=== PATIENT | male | born 1970 | race Caucasian/White ===

== ENCOUNTER 2016-04-30 09:24 | Inpatient (IN) | payer SELFPAY ==
--- NOTE | ~2016-04-30 | HP ---
History And Physical [facility] [address] [place]. [address] NAME: ABRAHAM BEASLEY : [birth year] STATUS : ADM IN PAT#: [id number] AGE: 45 ADM/REG DATE : 04/30/16 MR#: [id number] REPORT SERV DATE: 04/30/16 DICTATED BY: DOMINIC MORRISON DATE: 04/30/16 REPORT STATUS : Draft TRANSCRIBED BY: MODL DATE: 04/30/16 DATE OF ADMISSION: 04/30/2016 CHIEF COMPLAINT: Chest pain. HISTORY OF PRESENT ILLNESS: The patient is a 45-year-old male with known coronary artery disease with previous anterior wall myocardial infarction in 07/2012 with drug-eluting stents to the LAD at that time. The patient awoke approximately 0400 hours on the day of admission with complaints of left elbow pain with mild chest discomfort. This is identical to his previous myocardial infarction pain. He ultimately was seen in the emergency department at [facility] in [place], [place]. His initial EKG was relatively unremarkable with the exception of evidence of an old anterior wall myocardial infarction. He continued to have chest pain despite medical management. Subsequent EKG suggested subtle ST elevation in the anterior leads. Initial troponin returned at 0.41, which is mildly elevated by their standard. The Code-STEMI protocol was activated. The patient was transferred emergently to the main campus [facility] in [place], [place]. He was received emergently in the catheterization laboratory. By time of arrival in catheterization laboratory, the patient was pain free. The patient reports maximum intensity of this discomfort an 8/10 to 9/10. He reports mild dyspnea in association with the chest pain. PAST MEDICAL HISTORY: 1. CAD. a. Status post anterior wall myocardial infarction 07/20/2012 with placement of 2 overlapping drug-eluting stents in the LAD (2.75 x 38 mm Xience and 3.5 x 15 mm Xience). 2. Hypertension. 3. Hyperlipidemia. 4. Tobacco abuse. FAMILY HISTORY: Mother with myocardial infarction at age 52. Recently in her late 60s. SOCIAL HISTORY: The patient smokes approximately a pack of cigarettes per day. He denies tobacco use for the last one month. He reports social alcohol use. He denies illicit drug use. ALLERGIES: NO KNOWN DRUG ALLERGIES. REVIEW OF SYSTEMS: Negative for all organ systems except per the history of present illness. PHYSICAL EXAMINATION: VITAL SIGNS: Blood pressure 108/52, pulse 88, respirations 16 and unlabored, saturating 100% on two liters nasal cannula. GENERAL: A middle-aged male, in no acute distress. History And Physical [address] [address] NAME: ABRAHAM BEASLEY : [birth year] STATUS : ADM IN [facility]#: [id number] AGE: 45 ADM/REG DATE : 04/30/16 MR#: [id number] REPORT SERV DATE: 04/30/16 DICTATED BY: DOMINIC MORRISON DATE: 04/30/16 REPORT STATUS : Draft TRANSCRIBED BY: MODKala DATE: 04/30/16 HEENT: Normal. NECK: Supple, no JVD or bruit, normal carotid upstroke bilaterally, no thyromegaly. LUNGS: Clear to auscultation and percussion. No wheezes, rales or rhonchi. No use of accessory muscles. CARDIOLOGY: Regular rhythm, normal S1, S2, no thrill, no murmur, rubs or gallops, normal PMI. ABDOMEN: Bowel sounds positive, soft, nontender, and nondistended. No masses or aortic bruits. No hepatosplenomegaly or hepatojugular reflux. EXTREMITIES: No edema. Normal pulses. No clubbing or cyanosis. SKIN: Warm and dry, no significant rash. NEUROLOGIC: Alert and oriented x 3. Appropriate mood. EKG: Sinus rhythm with evidence of old anterior wall myocardial infarction with very subtle ST elevation in leads V1 through V3. LABORATORIES: WBC 9.4, hemoglobin 15.6, hematocrit 44.9, platelets 205,000. Sodium 135, potassium 5, chloride 105, CO2 21, BUN 14, creatinine 1.04, glomerular filtration rate 89, glucose 106. Liver function tests are normal with the exception of a marginally elevated AST of 47. Creatine kinase 378, which is in the normal limit for this laboratory. CK-MB elevated at 35.8 (upper limit of normal 6.3) and troponin I is 0.41. IMPRESSION: 1. Acute coronary syndrome/non-Q-wave myocardial infarction with ongoing chest pain at time of transfer. The patient received emergently in cardiac catheterization laboratory for angiography and intervention. The patient subsequently found to have subtotal occlusion of the second obtuse marginal branch of the left circumflex coronary artery with placement of two drug-eluting stents in the proximal and midportions of that vessel. Patent stents to the LAD. Severely depressed left ventricular systolic function with ejection fraction approximately 20% by single plane ventriculography. The patient admitted to cardiac intensive care unit for post myocardial infarction management. Echocardiogram in the a.m. to more accurately evaluate left ventricular systolic function. 2. Tobacco cessation. Counseling and encouragement and reinforcement of the importance of complete lifelong cessation recommended. 3. Beta-jennyfer and SUGAR inhibitor and aspirin and dual antiplatelet therapy. 4. Initiation of statin agent. CSL/MODL Shanta Morrison M.D. / [id number] CC: History And Physical [address] [address] NAME: ABRAHAM BEASLEY : [birth year] STATUS : ADM IN PAT#: [id number] AGE: 45 ADM/REG DATE : 04/30/16 MR#: [id number] REPORT SERV DATE: 04/30/16 DICTATED BY: DOMINIC MORRISON DATE: 04/30/16 REPORT STATUS : Draft TRANSCRIBED BY: SOTO DATE: 04/30/16 Shanta Morrison M.D.
[~2016-04-30 09:24] MED LIST: ASAB PO; BRILINTA90 MG PO; COREG6 PO; LIPITOR40 PO; NITROSTAT0.4 MG SL; PRIN2.5 PO
[2016-04-30 13:14] LABS: BASOPHILS 0.1 %; BASOPHILS ABSOLUTE 0.01 10/3/uL (0.0-0.16); EOSINOPHILS 1.3 %; EOSINOPHILS ABSOLUTE 0.13 10/3/uL (0.0-0.53); HEMATOCRIT 39.8 % (40.0-51.0); HEMOGLOBIN 13.9 g/dL (13.6-17.8); IMMATURE GRANULOCYTES 0.3 %; IMMATURE GRANULOCYTES ABSOLUTE 0.03 10/3/uL (0.0-0.11); LYMPHOCYTES 25.2 %; LYMPHOCYTES ABSOLUTE 2.52 10/3/uL (0.67-4.30); MANUAL DIFF NO %; MEAN CORPUS HGB CONC 34.9 g/dL (32.0-36.0); MEAN CORPUSCULAR HEMOGLOB 32.5 pg (26.0-34.0); MEAN PLATELET VOLUME 10.5 fL (9.2-13.0); MONOCYTES 5.8 %; MONOCYTES ABSOLUTE 0.58 10/3/uL (0.21-1.20); NEUTROPHILS 67.3 %; NEUTROPHILS ABSOLUTE 6.73 10/3/uL (2.02-8.40); PLATELET COUNT 213 10/3/uL (150-400); RBC DISTRIBUTION WIDTH 13.3 % (12.0-16.0); RED CELL COUNT 4.28 10/6/uL (4.7-6.1)
[2016-04-30] MEDS ORDERED: PRIN10 PO (13:34)
[2016-04-30] MEDS ORDERED: ASAB PO (13:35)
[2016-04-30] MEDS ORDERED: NITROSTAT0.4 MG SL (13:36)
[2016-04-30 13:42] LABS: BUN (BLOOD UREA NITROGEN) 13 MG/DL (6-23); CALCIUM, SERUM 7.9 MG/DL (8.5-10.4); CHLORIDE, SERUM 108 MMOL/L (96-112); CO2 (CARBON DIOXIDE) 22 MMOL/L (24-34); CPK 2320 U/L (0-200); CREATININE 0.85 MG/DL (0.70-1.30); GFR AFRICAN AMERICAN 121 ML/MIN (>=60); GFR NON AFRICAN AMERICAN 104 ML/MIN (>=60); GLUCOSE, SERUM 103 MG/DL (60-99); POTASSIUM, SERUM 4.4 MMOL/L (3.5-5.3); SODIUM, SERUM 140 MMOL/L (135-148)
[2016-04-30 13:55] LABS: CK-MB 393.4 NG/ML
[2016-04-30 20:28] LABS: CK-MB 385.7 NG/ML
[2016-05-01 04:31] LABS: BASOPHILS 0.1 %; BASOPHILS ABSOLUTE 0.01 10/3/uL (0.0-0.16); EOSINOPHILS 2.2 %; EOSINOPHILS ABSOLUTE 0.17 10/3/uL (0.0-0.53); HEMATOCRIT 37.6 % (40.0-51.0); HEMOGLOBIN 13.2 g/dL (13.6-17.8); IMMATURE GRANULOCYTES 0.3 %; IMMATURE GRANULOCYTES ABSOLUTE 0.02 10/3/uL (0.0-0.11); LYMPHOCYTES 16.7 %; LYMPHOCYTES ABSOLUTE 1.26 10/3/uL (0.67-4.30); MANUAL DIFF NO %; MEAN CORPUS HGB CONC 35.1 g/dL (32.0-36.0); MEAN CORPUSCULAR HEMOGLOB 33.5 pg (26.0-34.0); MEAN CORPUSCULAR VOLUME 95.4 fL (80-100); MEAN PLATELET VOLUME 11.2 fL (9.2-13.0); MONOCYTES 6.9 %; MONOCYTES ABSOLUTE 0.52 10/3/uL (0.21-1.20); NEUTROPHILS 73.8 %; NEUTROPHILS ABSOLUTE 5.58 10/3/uL (2.02-8.40); PLATELET COUNT 230 10/3/uL (150-400); RBC DISTRIBUTION WIDTH 13.5 % (12.0-16.0); RED CELL COUNT 3.94 10/6/uL (4.7-6.1); WHITE BLOOD CELLS 7.6 10/3/uL (4.5-10.5)
[2016-05-01 04:53] LABS: BUN (BLOOD UREA NITROGEN) 14 MG/DL (6-23); CALCIUM, SERUM 8.4 MG/DL (8.5-10.4); CHLORIDE, SERUM 108 MMOL/L (96-112); CK-MB 160.6 NG/ML; CO2 (CARBON DIOXIDE) 24 MMOL/L (24-34); CPK 1176 U/L (0-200); CREATININE 1.06 MG/DL (0.70-1.30); GFR AFRICAN AMERICAN 97 ML/MIN (>=60); GFR NON AFRICAN AMERICAN 84 ML/MIN (>=60); HDL CHOLESTEROL 28 MG/DL (> 39); POTASSIUM, SERUM 3.9 MMOL/L (3.5-5.3); SODIUM, SERUM 142 MMOL/L (135-148); TRIGLYCERIDE 203 MG/DL (< 150)
[2016-05-01 04:55] LABS: CHOL/HDL RATIO(NOT ORDER) 6.3 (0-5); CHOLESTEROL 177 MG/DL (< 200); CKMB INDEX (NOT ORD) 13.7; GLUCOSE, SERUM 142 MG/DL (60-99); LDL CHOLESTEROL 109 MG/DL (< 130); NON-HDL CHOLESTEROL 149 MG/DL (< 160)
[2016-05-01 13:49] LABS: CK-MB 73.2 NG/ML
[2016-05-01 13:50] LABS: CKMB INDEX (NOT ORD) 11.4
[2016-05-02 05:55] LABS: CALCIUM, SERUM 8.5 MG/DL (8.5-10.4); CHLORIDE, SERUM 108 MMOL/L (96-112); CO2 (CARBON DIOXIDE) 23 MMOL/L (24-34); CREATININE 0.89 MG/DL (0.70-1.30); GFR AFRICAN AMERICAN 119 ML/MIN (>=60); GFR NON AFRICAN AMERICAN 103 ML/MIN (>=60); POTASSIUM, SERUM 3.9 MMOL/L (3.5-5.3); SODIUM, SERUM 141 MMOL/L (135-148)
[2016-05-02 06:03] LABS: BUN (BLOOD UREA NITROGEN) 8 MG/DL (6-23); GLUCOSE, SERUM 97 MG/DL (60-99)
[2016-05-02] MEDS ORDERED: COREG12 PO (09:12)
[2016-05-02] MEDS ORDERED: LIPITOR40 PO (09:13)
[2016-05-02] MEDS ORDERED: PLAVIX PO (09:14)
== END 2016-05-02 14:41 | disposition home or self-care (01) | DRG 247 ==
LOC: SSU2 09:24 → CCU 11:20 → 6NO 05-01 20:30
PROVIDERS: Internal Medicine Cardiovascular Disease
PROC: 027035Z Dilation of Coronary Artery, One Artery with Two Drug-eluting Intraluminal Devices, Percutaneous Approach (ICD-10-PCS; principal; 2016-04-30)
PROC: 4A023N7 Measurement of Cardiac Sampling and Pressure, Left Heart, Percutaneous Approach (ICD-10-PCS; 2016-04-30)
PROC: B2111ZZ Fluoroscopy of Multiple Coronary Arteries using Low Osmolar Contrast (ICD-10-PCS; 2016-04-30)
PROC: B2151ZZ Fluoroscopy of Left Heart using Low Osmolar Contrast (ICD-10-PCS; 2016-04-30)
DX: I21.3 ST elevation (STEMI) myocardial infarction of unspecified site (principal); I10 Essential (primary) hypertension; I25.10 Atherosclerotic heart disease of native coronary artery without angina pectoris; E66.9 Obesity, unspecified; I25.2 Old myocardial infarction; E78.00 Pure hypercholesterolemia, unspecified; Z95.5 Presence of coronary angioplasty implant and graft; Z68.35 Body mass index [BMI] 35.0-35.9, adult; Z82.49 Family history of ischemic heart disease and other diseases of the circulatory system; Z87.891 Personal history of nicotine dependence
CPT/HCPCS: 71010; 80048; 80061; 82550; 82553; 85025; 87641; 93005; 93458; 99152; 99153; A9270-GY; C1725; C1760; C1769; C1874; C1887; C1894; C8929; C9606; J0583; J2250; J3010; Q9957; Q9967

== ENCOUNTER 2016-06-08 23:01 | Inpatient (IN) | payer SELFPAY ==
[~2016-06-08 23:01] MED LIST changes: +COREG12 PO; +PLAVIX PO; +PRIN10 PO
[2016-06-09 02:46] LABS: BASOPHILS 0.1 %; BASOPHILS ABSOLUTE 0.01 10/3/uL (0.0-0.16); EOSINOPHILS 2.4 %; EOSINOPHILS ABSOLUTE 0.18 10/3/uL (0.0-0.53); HEMATOCRIT 40.4 % (40.0-51.0); HEMOGLOBIN 14.1 g/dL (13.6-17.8); IMMATURE GRANULOCYTES 0.3 %; IMMATURE GRANULOCYTES ABSOLUTE 0.02 10/3/uL (0.0-0.11); LYMPHOCYTES 29.2 %; LYMPHOCYTES ABSOLUTE 2.17 10/3/uL (0.67-4.30); MANUAL DIFF NO %; MEAN CORPUS HGB CONC 34.9 g/dL (32.0-36.0); MEAN CORPUSCULAR HEMOGLOB 32.7 pg (26.0-34.0); MEAN CORPUSCULAR VOLUME 93.7 fL (80-100); MEAN PLATELET VOLUME 10.6 fL (9.2-13.0); MONOCYTES 7.1 %; MONOCYTES ABSOLUTE 0.53 10/3/uL (0.21-1.20); NEUTROPHILS 60.9 %; NEUTROPHILS ABSOLUTE 4.52 10/3/uL (2.02-8.40); PLATELET COUNT 165 10/3/uL (150-400); RBC DISTRIBUTION WIDTH 13.4 % (12.0-16.0); RED CELL COUNT 4.31 10/6/uL (4.7-6.1); WHITE BLOOD CELLS 7.4 10/3/uL (4.5-10.5)
[2016-06-09 03:04] LABS: BUN (BLOOD UREA NITROGEN) 9 MG/DL (6-23); CALCIUM, SERUM 8.1 MG/DL (8.5-10.4); CHLORIDE, SERUM 110 MMOL/L (96-112); CHOL/HDL RATIO(NOT ORDER) 4.4 (0-5); CHOLESTEROL 109 MG/DL (< 200); CK-MB 2.7 NG/ML; CO2 (CARBON DIOXIDE) 23 MMOL/L (24-34); CPK 116 U/L (0-200); CREATININE 0.99 MG/DL (0.70-1.30); GFR AFRICAN AMERICAN 105 ML/MIN (>=60); GFR NON AFRICAN AMERICAN 91 ML/MIN (>=60); GLUCOSE, SERUM 113 MG/DL (60-99); HDL CHOLESTEROL 25 MG/DL (> 39); LDL CHOLESTEROL 53 MG/DL (< 130); NON-HDL CHOLESTEROL 84 MG/DL (< 160); POTASSIUM, SERUM 3.7 MMOL/L (3.5-5.3); SODIUM, SERUM 142 MMOL/L (135-148); TRIGLYCERIDE 159 MG/DL (< 150)
[2016-06-09 03:05] LABS: TROPONIN I 0.05 NG/ML (<0.05)
[2016-06-09 10:14] LABS: CK-MB 3.1 NG/ML; CPK 95 U/L (0-200)
[2016-06-09 18:43] LABS: CK-MB 2.9 NG/ML; CPK 83 U/L (0-200); TROPONIN I 0.09 NG/ML (<0.05)
[2016-06-10 02:07] LABS: BUN (BLOOD UREA NITROGEN) 18 MG/DL (6-23); CALCIUM, SERUM 8.7 MG/DL (8.5-10.4); CHLORIDE, SERUM 110 MMOL/L (96-112); CO2 (CARBON DIOXIDE) 27 MMOL/L (24-34); CREATININE 1.01 MG/DL (0.70-1.30); GFR AFRICAN AMERICAN 103 ML/MIN (>=60); GFR NON AFRICAN AMERICAN 89 ML/MIN (>=60); GLUCOSE, SERUM 94 MG/DL (60-99); POTASSIUM, SERUM 4.2 MMOL/L (3.5-5.3); SODIUM, SERUM 144 MMOL/L (135-148)
[2016-06-10 02:12] LABS: CK-MB 2.5 NG/ML; CPK 72 U/L (0-200)
== END 2016-06-10 12:10 | disposition home or self-care (01) | DRG 247 ==
LOC: SSU2 23:01 → CCU 06-09 01:14 → 6NO 06-09 15:03
PROVIDERS: Internal Medicine Interventional Cardiology
PROC: 4A023N7 Measurement of Cardiac Sampling and Pressure, Left Heart, Percutaneous Approach (ICD-10-PCS; principal; 2016-06-08)
PROC: 027034Z Dilation of Coronary Artery, One Artery with Drug-eluting Intraluminal Device, Percutaneous Approach (ICD-10-PCS; 2016-06-08)
PROC: B2111ZZ Fluoroscopy of Multiple Coronary Arteries using Low Osmolar Contrast (ICD-10-PCS; 2016-06-08)
PROC: B2151ZZ Fluoroscopy of Left Heart using Low Osmolar Contrast (ICD-10-PCS; 2016-06-08)
DX: I25.110 Atherosclerotic heart disease of native coronary artery with unstable angina pectoris (principal); I42.9 Cardiomyopathy, unspecified; I11.0 Hypertensive heart disease with heart failure; I50.22 Chronic systolic (congestive) heart failure; Q24.5 Malformation of coronary vessels; E78.00 Pure hypercholesterolemia, unspecified; E78.2 Mixed hyperlipidemia; E66.9 Obesity, unspecified; I25.2 Old myocardial infarction; G47.33 Obstructive sleep apnea (adult) (pediatric); Z68.34 Body mass index [BMI] 34.0-34.9, adult; Z95.5 Presence of coronary angioplasty implant and graft; Z79.82 Long term (current) use of aspirin; Z87.891 Personal history of nicotine dependence; Z79.02 Long term (current) use of antithrombotics/antiplatelets
CPT/HCPCS: 71010; 80048; 80061; 82550; 82553; 83735; 84484; 85025; 87641; 93005; 93458; 99152; 99153; A9270-GY; C1725; C1760; C1769; C1874; C1887; C9600; J0583; J2250; J2405; J3010; Q9967